=== PATIENT | male | born 1935 ===

== ENCOUNTER → 2019-06-13 09:58 | Day surgery (SDC) | payer MEDICARE, MEDICAID ==
[~2019-06-13 09:58] MED LIST: Clindamycin 600 MG/D5W BAG(*) 600 MG/50 ML BAG IV ONE; Diazepam TAB(*) 5 MG ONE; Flumazenil* 0.1 MG/ML 5 ML MDV ONE; Insulin LISPRO* 1 UNITS UNIT SUBCUT ONE; Lidocaine 1% INJ* 10 MG/ML 30 ML SDV ONE; Midazolam* 1 MG/ML 5 ML VIAL (5 MG) ONE; Naloxone* 0.4 MG/ML 1 ML VIAL ONE; fentaNYL* 50 MCG/ML 2 ML VIAL (100 MCG VIAL) ONE
[2019-06-13 11:20] LABS: ABS Eosinophils 0.4 10^3/ul (0-0.6); ABS Monocytes 0.6 10^3/ul (0-0.8); ABS Neutrophils 5.4 10^3/ul (1.5-7.7); Eosinophil % 5.4 %; Hematocrit 40 % (42-52); Hemoglobin 13.2 g/dL (14.0-18.0); Lymphocyte % 12.9 %; Mean Corpuscular HGB Conc 33 g/dL (31-36); Mean Corpuscular Hemoglobin 28 pg (27-31); Mean Corpuscular Volume 84 fL (80-94); Mean Platelet Volume 8.3 fL (7.4-10.4); Platelet Count 197 10^3/uL (150-450); Red Blood Count 4.74 10^6 /uL (4.18-5.48); Red Cell Distribution Width 15 % (10-15); White Blood Count 7.4 10^3/uL (3.5-10.8)
[2019-06-13 11:28] LABS: Activated Partial Thrombo Time 39.8 seconds (26.0-38.0); INR 1.11 (0.82-1.09)
[2019-06-13 11:39] LABS: BUN/Creatinine Ratio 37.4 (8-20); Blood Urea Nitrogen 65 mg/dL (6-24); CO2 Carbon Dioxide 29 mmol/L (22-32); Calcium 9.9 mg/dL (8.6-10.3); Chloride 98 mmol/L (101-111); EGFR African American 45.7 (>60); EGFR Non-African American 37.8 (>60); Glucose 115 mg/dL (70-100); Sodium 136 mmol/L (135-145)
[2019-06-13 11:42] LABS: Anion Gap 9 mmol/L (2-11)
[2019-06-13 13:36] VITALS: BP 133/58
--- NOTE | 2019-06-13 17:00 | OP ---
DATE OF OPERATION: 06/13/19 - [facility] CATH DATE OF : 39 SURGEON: Jerald Gonzalez MD ANESTHESIA: Local anesthesia with conscious sedation. PRE-OP DIAGNOSES: Atrial fibrillation, pacemaker at end of service. POST-OP DIAGNOSES: Atrial fibrillation, pacemaker at end of service. OPERATIVE PROCEDURE: Single-chamber pacemaker generator change. ESTIMATED BLOOD LOSS: None. COMPLICATIONS: None. INDICATIONS: The patient is an 84-year-old gentleman with a history of pacemaker implantation in 2009. The patient recently had his pacemaker interrogated and was found to be at end of service. Generator change was recommended. DESCRIPTION OF PROCEDURE: The patient was brought to procedure room in a fasting state. Informed consent had been obtained prior to procedure. All labs had been reviewed. The patient was placed supine on the procedure table. His left deltopectoral area was cleaned and draped in the usual fashion. 1% lidocaine was used for local anesthesia. A 4 cm incision was made across the previous incision line and blunt dissection was carried down to the fiber sheath. The fiber sheath was opened and the pacemaker was removed from the pocket. The generator was detached from the ventricular lead. The generator was a [employer], model SESR01, serial number [id number]. The ventricular lead was tested and had a R wave sensitivity of 4, impendence 510 ohms, threshold 0.8 volts of 0.5 msec. The pocket was flushed, a new generator was attached to the ventricular lead. The new generator is a [employer], model W3SR01, serial number [id number]. The device was placed in the pocket. The surgical incision was closed in 3 layers. The patient was returned to [facility] area in stable condition. [id number]/[facility] #: [id number] [facility]
== END | disposition home or self-care (01) ==
LOC: CHICATH 09:58
PROVIDERS: ATTEND Specialist
DX: Z45.010 Encounter for checking and testing of cardiac pacemaker pulse generator [battery] (principal); I48.91 Unspecified atrial fibrillation; R53.83 Other fatigue; I08.3 Combined rheumatic disorders of mitral, aortic and tricuspid valves; R94.31 Abnormal electrocardiogram [ECG] [EKG]
CPT/HCPCS: 33227; 36415; 80048; 85025; 85610; 85730; 88300; 99156; A9270-GY; C1786; J1815; J2250; J2310; J3010